=== PATIENT | male | born 1970 | race Caucasian/White ===

== ENCOUNTER 2016-11-15 11:18 | Emergency (ER) | payer SELFPAY ==
[~2016-11-15] VITALS: Ht 180.3 cm; Wt 98.9 kg
[2016-11-15] MEDS ORDERED: FLEXERIL10 MG PO (15:08)
[2016-11-15 15:27] VITALS: BP 181/111
== END 2016-11-15 15:28 | disposition home or self-care (01) ==
LOC: EME 11:18
DX: S39.011A Strain of muscle, fascia and tendon of abdomen, initial encounter (principal); X50.9XXA Other and unspecified overexertion or strenuous movements or postures, initial encounter; I10 Essential (primary) hypertension; V58.4XXA Person boarding or alighting a pick-up truck or van injured in noncollision transport accident, initial encounter; F17.210 Nicotine dependence, cigarettes, uncomplicated
CPT/HCPCS: 99281; 99284; J1885